=== PATIENT | female | born 1950 | race African-American/Black ===

== ENCOUNTER → 2016-11-26 | Outpatient (CLI) | payer BC ==
[2015-06-25 20:11] VITALS: BP 109/51
--- NOTE | 2016-11-26 15:55 | RAD ---
DATE: 11/26/2016 EXAM: DIGITAL SCREEN BILAT W/CAD HISTORY: Screening study. COMPARISON: None. This study was interpreted with the benefit of Computerized Aided Detection (CAD). The breast parenchyma shows scattered fibroglandular densities. Breast parenchyma level B. FINDINGS: Two digital MLO and CC mammograms of both breasts were obtained. This is patient's baseline mammogram. The breast parenchyma is composed of scattered fibroglandular densities which can obscure a lesion on mammography (breast density code B). No spiculated mass is seen. No malignant appearing calcification or area of architectural distortion is noted. Benign-appearing calcifications are seen within both breasts. IMPRESSION: BI-RADS Category 1, negative. There is no mammographic evidence of malignancy. Routine yearly screening mammography is recommended for follow-up. BI-RADS CATEGORY: 1 NEGATIVE RECOMMENDED FOLLOW-UP: 12M 12 MONTH FOLLOW-UP PQRS compliance statement: Patient information was entered into a reminder system with a target due date 11/26/2017 for the next mammogram. Mammography is a sensitive method for finding small breast cancers, but it does not detect them all and is not a substitute for careful clinical examination. A negative mammogram does not negate a clinically suspicious finding and should not result in delay in biopsying a clinically suspicious abnormality. "Our facility is accredited by the [employer] Mammography Program."
== END | disposition home or self-care (01) ==
LOC: MAMMO 12:32
PROVIDERS: ATTEND Family Medicine
DX: Z12.31 Encounter for screening mammogram for malignant neoplasm of breast (principal)
CPT/HCPCS: G0202; 77067

== ENCOUNTER → 2018-03-17 | Outpatient (CLI) | payer BC ==
[2015-06-25 20:11] VITALS: BP 109/51
--- NOTE | 2018-03-21 08:23 | RAD ---
DATE: 03/17/2018 1:00 PM EXAM: MAMMO [place] SCREENING BILATERAL HISTORY: routine screening evaluation COMPARISON: 11/26/2016 Bilateral CC and MLO views of the breasts were performed. Bilateral breast tomosynthesis was performed in CC and MLO projections. This study was interpreted with the benefit of Computerized Aided Detection (CAD ). Breast Density: The breast parenchyma is primarily fatty replaced. Breast parenchyma level density A. FINDINGS: Benign calcifications are present. No suspicious masses, microcalcifications or architectural distortion is present to suggest malignancy in either breast. The visualized axillae are unremarkable. IMPRESSION: No mammographic evidence of malignancy. BI-RADS CATEGORY: 2 BENIGN FINDING(S) RECOMMENDED FOLLOW-UP: 12M 12 MONTH FOLLOW-UP Annual screening mammography is recommended, unless clinically indicated sooner based on symptoms or change in physical exam. PQRS compliance statement: Patient information was entered into a reminder system with a target due date 03/18/2018 for the next mammogram. Mammography is a sensitive method for finding small breast cancers, but it does not detect them all and is not a substitute for careful clinical examination. A negative mammogram does not negate a clinically suspicious finding and should not result in delay in biopsying a clinically suspicious abnormality. "Our facility is accredited by the [employer] Mammography Program." LAUREND
== END | disposition home or self-care (01) ==
LOC: MAMMO 10:40
PROVIDERS: ATTEND Family Medicine
DX: Z12.31 Encounter for screening mammogram for malignant neoplasm of breast (principal)
CPT/HCPCS: 77063; 77067

== ENCOUNTER 2018-12-12 16:45 | Inpatient (IN) | payer BC ==
[~2018-12-12] VITALS: Ht 152.4 cm; Wt 131.5 kg
--- NOTE | 2018-12-12 19:29 | PHYS DOC ---
Past Medical History Past Medical History: Arthritis, High Cholesterol, Hypertension (CARSON YAO APRN) Past Surgical History: Cholecystectomy, Hysterectomy, Tubal ligation, Other Additional Past Surgical Histo: HERNIA (CARSON YAO APRN) Alcohol Use: None Drug Use: None (CARSON YAO APRN) Adult General Chief Complaint Chief Complaint: FOOT INJURY PAIN HPI HPI Patient is a 68 year old female who presents with eczema to her bilateral lower extremities. Patient states he has A frequency of lotions or medications he uses on eczema. Patient states it has gotten worse began to swell and weep and turned red in color. Patient states that not hurt. Patient denies fevers. Patient states over the last couple months size of the area on the right lower leg has grew dramatically. Patient been using Eucerin cream, vaseline, and triamcinolone cream. (CARSON YAO SPORTS SPECIALIST) Review of Systems Review of Systems Constitutional: Denies fever or chills [] Integument: Right and left lower leg wounds. Denies rash or skin lesions [] Neurologic: Denies headache, focal weakness or sensory changes [] All other systems were reviewed and found to be within normal limits, except as documented in this note. (CARSON YAO APRN) Allergies Allergies Allergies Coded Allergies Type Severity Reaction Last Updated Verified acetaminophen Allergy Intermediate 06/25/15 Yes codeine Allergy Intermediate 06/25/15 Yes egg Allergy Intermediate 06/25/15 Yes venom-honey bee Allergy Intermediate 06/25/15 Yes (QUINN CARDENAS DO) Physical Exam Physical Exam Constitutional: Well developed, well nourished, no acute distress, non-toxic appearance. [] Skin: Right and left lower leg wounds. (See note) Warm, dry, no erythema, no rash. [] Back: No tenderness, no CVA tenderness. [] Extremities: No tenderness, no cyanosis, no clubbing, ROM intact, Right lower leg 2+ and left lower leg 1+ edema. [] Neurologic: Alert and oriented X 3, normal motor function, normal sensory function, no focal deficits noted. [] Psychologic: Affect normal, judgement normal, mood normal. [] (CARSON YAO APRN) Current Patient Data Vital Signs Vital Signs Date Time Temp Pulse Resp B/P (MAP) Pulse Ox O2 Delivery O2 Flow Rate FiO2 12/12/18 20:10 90 170/74 (106) 97 Room Air 12/12/18 18:29 98.1 16 98.1 (QUINN CARDENAS DO) Lab Values Laboratory Tests Test 12/12/18 20:55 White Blood Count 9.8 x10^3/uL (4.0-11.0) Red Blood Count 5.38 x10^6/uL (3.50-5.40) Hemoglobin 12.0 g/dL (12.0-15.5) Hematocrit 37.8 % (36.0-47.0) Mean Corpuscular Volume 70 fL (79-100) L Mean Corpuscular Hemoglobin 22 pg (25-35) L Mean Corpuscular Hemoglobin Concent 32 g/dL (31-37) Red Cell Distribution Width 15.5 % (11.5-14.5) H Platelet Count 283 x10^3/uL (140-400) Neutrophils (%) (Auto) 62 % (31-73) Lymphocytes (%) (Auto) 29 % (24-48) Monocytes (%) (Auto) 8 % (0-9) Eosinophils (%) (Auto) 1 % (0-3) Basophils (%) (Auto) 1 % (0-3) Neutrophils # (Auto) 6.0 x10^3/uL (1.8-7.7) Lymphocytes # (Auto) 2.8 x10^3/uL (1.0-4.8) Monocytes # (Auto) 0.8 x10^3/uL (0.0-1.1) Eosinophils # (Auto) 0.1 x10^3/uL (0.0-0.7) Basophils # (Auto) 0.1 x10^3/uL (0.0-0.2) Platelet Estimate Adequate (ADEQUATE) Hypochromasia Mod Microcytosis Mod Sodium Level 142 mmol/L (136-145) Potassium Level 3.4 mmol/L (3.5-5.1) L Chloride Level 102 mmol/L (98-107) Carbon Dioxide Level 32 mmol/L (21-32) Anion Gap 8 (6-14) Blood Urea Nitrogen 19 mg/dL (7-20) Creatinine 0.7 mg/dL (0.6-1.0) Estimated GFR (Cockcroft-Gault) 101.0 BUN/Creatinine Ratio 27 (6-20) H Glucose Level 102 mg/dL (70-99) H Lactic Acid Level 1.5 mmol/L (0.4-2.0) Calcium Level 9.8 mg/dL (8.5-10.1) Total Bilirubin 0.3 mg/dL (0.2-1.0) Aspartate Amino Transferase (AST) 12 U/L (15-37) L Alanine Aminotransferase (ALT) 17 U/L (14-59) Alkaline Phosphatase 101 U/L (46-116) Total Protein 7.8 g/dL (6.4-8.2) Albumin 3.6 g/dL (3.4-5.0) Albumin/Globulin Ratio 0.9 (1.0-1.7) L Laboratory Tests 12/12/18 20:55 Laboratory Tests 12/12/18 20:55 (CARSON YAO APRN) EKG EKG [] (CARSON YAO APRN) Radiology/Procedures Radiology/Procedures [] (CARSON YAO APRN) Radiology/Procedures Bilateral ankle 3V & Right Tib/Fib 2V: (Preliminary interpretation by ED physician): No acute fracture/dislocation (QUINN CARDENAS DO) Course & Med Decision Making Course & Med Decision Making Patient is a 68 year old female who presents with eczema to her bilateral lower extremities. Patient states he has A frequency of lotions or medications he uses on eczema. Patient states it has gotten worse began to swell and weep and turned red in color. Patient states that not hurt. Patient denies fevers. Patient states over the last couple months size of the area on the right lower leg has grew dramatically. Patient been using Eucerin cream, vaseline, and triamcinolone cream. Has a large weeping reddened area the size of a softball to her right lower leg. Patient also has a vague thigh weeping reddened area to the left lower medial leg and another dollar coin-sized reddened non-weeping area to the lateral left lower leg. There is plus edema to the right lower leg and 1+ to the left lower leg. Pedal pulses palpable. Cap refill less than 3 seconds. Skin is pink warm and dry. Patient states he is not diabetic and she denies any numbness or tingling, or coolness to that extremity. Alert and oriented. Ambulatory with a steady gait I have spoken to Dr Miles about this patient and they are admitted for cellulitis. (CAROSN YAO APRN) Dragon Disclaimer Dragon Disclaimer This electronic medical record was generated, in whole or in part, using a voice recognition dictation system. (CARSON YAO APRN) Departure Departure Impression: Primary Impression: Cellulitis Disposition: ADMITTED INPATIENT Admitting Physician: Ivone Ndiaye (QUINN CARDENAS DO) Condition: STABLE Referrals: Wihtley CHANEL MD (PCP) Attending Signature Attending Signature I have reviewed the PA/LICENSING OFFICER's note and plan of care. I was available for consultation as needed during the patient's visit in the emergency department. I agree with the clinical impression, plan, and disposition. (QUINN CADRENAS DO) Problem Qualifiers Primary Impression: Cellulitis Site of cellulitis: extremity Site of cellulitis of extremity: lower extremity Laterality: unspecified laterality Qualified Codes: L03.119 - Cellulitis of unspecified part of limb CARSON YAO APRN Dec 12, 2018 19:29 QUINN CARDENAS DO Dec 13, 2018 04:26
[2018-12-12 21:05] LABS: BASO # 0.1 x10^3/uL (0.0-0.2); BASO % 1 % (0-3); EOS # 0.1 x10^3/uL (0.0-0.7); EOS % 1 % (0-3); HEMATOCRIT 37.8 % (36.0-47.0); LYMPH # 2.8 x10^3/uL (1.0-4.8); LYMPH % 29 % (24-48); MEAN CORPUSCULAR HEMOGLOBIN 22 pg (25-35); MEAN CORPUSCULAR HGB CONC 32 g/dL (31-37); MEAN CORPUSCULAR VOLUME 70 fL (79-100); MONO # 0.8 x10^3/uL (0.0-1.1); MONO % 8 % (0-9); NEUT % 62 % (31-73); PLATELET COUNT 283 x10^3/uL (140-400); RED BLOOD COUNT 5.38 x10^6/uL (3.50-5.40); RED CELL DISTRIBUTION WIDTH 15.5 % (11.5-14.5); WHITE BLOOD COUNT 9.8 x10^3/uL (4.0-11.0)
[2018-12-12 21:16] LABS: CALCIUM 9.8 mg/dL (8.5-10.1); CREATININE 0.7 mg/dL (0.6-1.0); POTASSIUM 3.4 mmol/L (3.5-5.1)
[2018-12-12 21:24] LABS: PLT ESTIMATE ADEQUATE (ADEQUATE)
[2018-12-12 21:25] LABS: HYPOCHROMIA MOD; MICROCYTOSIS MOD
[2018-12-12 21:31] LABS: ALBUMIN 3.6 g/dL (3.4-5.0); ALBUMIN/GLOBULIN RATIO 0.9 (1.0-1.7); TOTAL BILIRUBIN 0.3 mg/dL (0.2-1.0); TOTAL PROTEIN 7.8 g/dL (6.4-8.2)
[2018-12-12] MEDS ORDERED: fentaNYL PF VIAL 100 MCG/2 ML VIAL IV PRN (22:00)
[2018-12-12] MEDS ORDERED: ONDANSETRON PF 4 MG/2 ML VIAL. IV PRN (22:00)
[2018-12-12] MEDS ORDERED: VANCOMYCIN 2 GM in IV NORMAL SALINE 500ML BAG 500 ML IV ONE (22:30)
[2018-12-12 23:00] VITALS: BP 164/77
[2018-12-13 03:00] VITALS: BP 168/70
[2018-12-13] MEDS: VANCOMYCIN PER PHARMACY MC PRN ×2 (03:01→14:48)
--- NOTE | 2018-12-13 03:01 | NUR ---
Pharmacy Vancomycin Dosing Note S:Consulted to monitor and dose vancomycin started 12/12/18. O:HELENA COLORADO is a 68 year old F with Cellulitis . Height: 5 feet, 0 inches Weight: 136.622891 kg [place] Body Weight: 45.50 Adjusted Body Weight: 81.70 Dosing Weight: Actual Other Antibiotics: LABS: Last BUN: 19 Last Creatinine: 0.7 Creatinine Clearance: 70 mL/min Last WBC: 9.8 Last Procalcitonin: Tmax (past 24 hours): Microbiology: I/O: Drug Levels: Last level: on at Last dose given 12/12/18 at 2300 Vancomycin Dosing: Loading Dose: 2000 mg x1 Dosing Weight: Actual Target Trough: 10-20 A: Based on: WT AND CRCL P: 1. Begin Vancomycin 2000 mg IV q12h 2. Follow up Trough level on 12/14/18 at 0301 3. Pharmacy will continue to monitor, follow and adjust therapy as needed. ALBERT MITCHELL RPH, 12/13/18 0301 Signed: 12/13/18 at 0302 by ALBERT MITCHELL RPH PHA
[2018-12-13 07:00] VITALS: BP 167/69
--- NOTE | 2018-12-13 08:16 | RAD ---
ANKLE RIGHT 3V, TIBIA FIBULA RIGHT History: Bilateral lower extremity wounds. Technique: 2 views right tib-fib and 3 views right ankle. Comparison: None. Findings: Advanced tricompartment right knee DJD. Normal alignment. No fracture. Symmetric ankle mortise. Lower extremity soft tissue swelling. No radiographic evidence of osteomyelitis. Small dorsal and plantar calcaneal spurs. Vascular calcifications. Impression: 1. No acute osseous abnormality. 2. Advanced tricompartment right knee DJD. Electronically signed by: Anam Adams DO (12/13/2018 8:13 AM) [email or web address]
[2018-12-13] MEDS ORDERED: HYDR-2145 PO (08:18)
[2018-12-13] MEDS ORDERED: CALC-77 PO (08:18)
[2018-12-13] MEDS ORDERED: LOVA40TA2 PO (08:18)
--- NOTE | 2018-12-13 08:18 | RAD ---
ANKLE LEFT 3V History: Bilateral lower extremity wounds. Technique: 3 views left ankle. Comparison: None. Findings: Normal alignment. No fracture. No radiographic evidence of osteomyelitis. Lower extremity soft tissue swelling. Plantar calcaneal spur. Vascular calcifications. Impression: 1. No acute osseous abnormality. Electronically signed by: Anam Adams DO (12/13/2018 8:16 AM) [email or web address]
[2018-12-13] MEDS ORDERED: ACETAMINOPHEN 500 MG TABLET PO PRN (08:45)
--- NOTE | 2018-12-13 08:49 | PDOC ---
PROGRESS NOTES Subjective Subjective Patient reports her legs look better to her today than they did at admission. Objective Objective Vital Signs Date Time Temp Pulse Resp B/P (MAP) Pulse Ox O2 Delivery O2 Flow Rate FiO2 12/13/18 07:50 Room Air 12/13/18 07:00 98.7 69 20 167/69 (101) 92 98.7 Intake and Output 12/13/18 06:59 Intake Total 300 ml Balance 300 ml Intake Oral 300 ml # Voids 1 Physical Exam Abdomen: Normal bowel sounds, Soft, No tenderness Heart: Regular rate Extremities: Other (scant edema bilateral LE's) General: Alert, Oriented X3, No acute distress Lungs: Clear to auscultation Skin: Other (bilateral lower legs with areas of eczema and surrounding erythema. Skin peeling but intact) Plan Plan of Care 1. Cellulitis bilateral LE's - improved from admission. Continue IV abx and elev ation. 2. eczema - treat with TAC BID. Patient aware of advice to avoid scratching or rubbing. 3. HTN - BP elevated, continue HCTZ and add Losartan. Comment Review of Relevant I have reviewed the following items brenden (where applicable) has been applied. Labs Laboratory Tests Test 12/12/18 20:55 White Blood Count 9.8 x10^3/uL (4.0-11.0) Red Blood Count 5.38 x10^6/uL (3.50-5.40) Hemoglobin 12.0 g/dL (12.0-15.5) Hematocrit 37.8 % (36.0-47.0) Mean Corpuscular Volume 70 fL (79-100) Mean Corpuscular Hemoglobin 22 pg (25-35) Mean Corpuscular Hemoglobin Concent 32 g/dL (31-37) Red Cell Distribution Width 15.5 % (11.5-14.5) Platelet Count 283 x10^3/uL (140-400) Neutrophils (%) (Auto) 62 % (31-73) Lymphocytes (%) (Auto) 29 % (24-48) Monocytes (%) (Auto) 8 % (0-9) Eosinophils (%) (Auto) 1 % (0-3) Basophils (%) (Auto) 1 % (0-3) Neutrophils # (Auto) 6.0 x10^3/uL (1.8-7.7) Lymphocytes # (Auto) 2.8 x10^3/uL (1.0-4.8) Monocytes # (Auto) 0.8 x10^3/uL (0.0-1.1) Eosinophils # (Auto) 0.1 x10^3/uL (0.0-0.7) Basophils # (Auto) 0.1 x10^3/uL (0.0-0.2) Platelet Estimate Adequate (ADEQUATE) Hypochromasia Mod Microcytosis Mod Sodium Level 142 mmol/L (136-145) Potassium Level 3.4 mmol/L (3.5-5.1) Chloride Level 102 mmol/L (98-107) Carbon Dioxide Level 32 mmol/L (21-32) Anion Gap 8 (6-14) Blood Urea Nitrogen 19 mg/dL (7-20) Creatinine 0.7 mg/dL (0.6-1.0) Estimated GFR (Cockcroft-Gault) 101.0 BUN/Creatinine Ratio 27 (6-20) Glucose Level 102 mg/dL (70-99) Lactic Acid Level 1.5 mmol/L (0.4-2.0) Calcium Level 9.8 mg/dL (8.5-10.1) Total Bilirubin 0.3 mg/dL (0.2-1.0) Aspartate Amino Transf (AST/SGOT) 12 U/L (15-37) Alanine Aminotransferase (ALT/SGPT) 17 U/L (14-59) Alkaline Phosphatase 101 U/L (46-116) Total Protein 7.8 g/dL (6.4-8.2) Albumin 3.6 g/dL (3.4-5.0) Albumin/Globulin Ratio 0.9 (1.0-1.7) Laboratory Tests Test 12/12/18 20:55 White Blood Count 9.8 x10^3/uL (4.0-11.0) Red Blood Count 5.38 x10^6/uL (3.50-5.40) Hemoglobin 12.0 g/dL (12.0-15.5) Hematocrit 37.8 % (36.0-47.0) Mean Corpuscular Volume 70 fL (79-100) Mean Corpuscular Hemoglobin 22 pg (25-35) Mean Corpuscular Hemoglobin Concent 32 g/dL (31-37) Red Cell Distribution Width 15.5 % (11.5-14.5) Platelet Count 283 x10^3/uL (140-400) Neutrophils (%) (Auto) 62 % (31-73) Lymphocytes (%) (Auto) 29 % (24-48) Monocytes (%) (Auto) 8 % (0-9) Eosinophils (%) (Auto) 1 % (0-3) Basophils (%) (Auto) 1 % (0-3) Neutrophils # (Auto) 6.0 x10^3/uL (1.8-7.7) Lymphocytes # (Auto) 2.8 x10^3/uL (1.0-4.8) Monocytes # (Auto) 0.8 x10^3/uL (0.0-1.1) Eosinophils # (Auto) 0.1 x10^3/uL (0.0-0.7) Basophils # (Auto) 0.1 x10^3/uL (0.0-0.2) Platelet Estimate Adequate (ADEQUATE) Hypochromasia Mod Microcytosis Mod Sodium Level 142 mmol/L (136-145) Potassium Level 3.4 mmol/L (3.5-5.1) Chloride Level 102 mmol/L (98-107) Carbon Dioxide Level 32 mmol/L (21-32) Anion Gap 8 (6-14) Blood Urea Nitrogen 19 mg/dL (7-20) Creatinine 0.7 mg/dL (0.6-1.0) Estimated GFR (Cockcroft-Gault) 101.0 BUN/Creatinine Ratio 27 (6-20) Glucose Level 102 mg/dL (70-99) Lactic Acid Level 1.5 mmol/L (0.4-2.0) Calcium Level 9.8 mg/dL (8.5-10.1) Total Bilirubin 0.3 mg/dL (0.2-1.0) Aspartate Amino Transf (AST/SGOT) 12 U/L (15-37) Alanine Aminotransferase (ALT/SGPT) 17 U/L (14-59) Alkaline Phosphatase 101 U/L (46-116) Total Protein 7.8 g/dL (6.4-8.2) Albumin 3.6 g/dL (3.4-5.0) Albumin/Globulin Ratio 0.9 (1.0-1.7) Medications Current Medications Ondansetron HCl (Zofran) 4 mg PRN Q8HRS PRN IV NAUSEA/VOMITING 1ST CHOICE; Start 12/12/18 at 22:00; Stop 12/13/18 at 21:59 Fentanyl Citrate (Fentanyl 2ml Vial) 50 mcg PRN Q1HR PRN IV SEVERE PAIN 7-10; Start 12/12/18 at 22:00; Stop 12/13/18 at 21:59 Vancomycin HCl (Vanco Per Pharmacy) 1 each PRN DAILY PRN MC SEE COMMENTS Last administered on 12/13/18at 03:01; Start 12/12/18 at 22:15 Vancomycin HCl 2 gm/Sodium Chloride 500 ml @ 250 mls/hr 1X ONCE IV Last administered on 12/12/18at 22:37; Start 12/12/18 at 22:30; Stop 12/13/18 at 00:29; Status DC Vancomycin HCl 2 gm/Sodium Chloride 500 ml @ 250 mls/hr Q12H IV ; Start 9 at 11:00 Vancomycin HCl (Vancomycin Trough Level) 1 each 1X ONCE MC ; Start 12/14/18 at 10:30; Stop 12/14/18 at 10:31 Hydrochlorothiazide (Hydrodiuril) 25 mg DAILY PO ; Start 12/13/18 at 09:00; Status UNV Non-Formulary Medication (Calcium Carb & Cit/Vitamin D3 (Calcium + D3 Er Tablet)) 1 each DAILY PO ; Start 12/13/18 at 09:00; Status UNV Non-Formulary Medication (Lovastatin ) 40 mg HS PO ; Start 12/13/18 at 21:00; Status UNV Active Scripts Active Reported Calcium + D3 Er Tablet (Calcium Carb & Cit/Vitamin D3) 1 Each Tablet.er 1 Each PO DAILY Lovastatin 40 Mg Tablet 40 Mg PO HS Hydrochlorothiazide Tablet (Hydrochlorothiazide) 25 Mg Tablet 25 Mg PO DAILY Vitals/I & O Vital Sign - Last 24 Hours 12/12/18 12/12/18 12/12/18 12/12/18 18:29 19:50 20:10 21:16 Temp 98.1 98.1 Pulse 90 96 90 94 Resp 16 B/P (MAP) 176/82 (113) 181/81 (114) 170/74 (106) 182/73 (109) Pulse Ox 98 98 97 97 O2 Delivery Room Air Room Air Room Air Room Air 12/12/18 12/12/18 12/12/18 12/13/18 22:16 23:00 23:16 03:00 Temp 98.3 98.5 98.3 98.5 Pulse 82 92 88 79 Resp 20 20 B/P (MAP) 163/76 (105) 164/77 (106) 196/82 (120) 168/70 (102) Pulse Ox 97 96 97 94 O2 Delivery Room Air Room Air Room Air Room Air 12/13/18 12/13/18 12/13/18 04:30 07:00 07:50 Temp 98.7 98.7 Pulse 69 Resp 20 B/P (MAP) 167/69 (101) Pulse Ox 92 O2 Delivery Room Air Room Air Room Air Intake and Output 12/12/18 12/12/18 12/13/18 14:59 22:59 06:59 Intake Total 300 ml Balance 300 ml CALISTA AYALA MD Dec 13, 2018 08:49
--- NOTE | 2018-12-13 09:10 | HP ---
ADMIT DATE: 12/12/2018 CHIEF COMPLAINT: Redness and swelling in bilateral legs. HISTORY OF PRESENT ILLNESS: The patient is a 68-year-old female with a history of eczema, who presented to the emergency room with the above complaint. She reported a several-day history of increasing swelling in her legs. Her eczema had not been well controlled and she had been scratching at it more than was usual for her. She had tried moisturizers and some [id number] steroid cream, but her symptoms continue to worsen and she grew concerned when she had increased swelling in her legs. When seen in the emergency room, she was found to have cellulitis of her legs. Treatment was started and she was admitted for further care. PAST MEDICAL HISTORY: Eczema, hypertension, hyperlipidemia, osteoarthritis. PAST SURGICAL HISTORY: Cholecystectomy, hysterectomy, ventral hernia repair. ALLERGIES: THE PATIENT IS ALLERGIC TO CODEINE, EGGS AND BEE VENOM. HOME MEDICATIONS: Hydrochlorothiazide 25 mg daily, lovastatin 40 mg daily, calcium supplement daily. FAMILY HISTORY: Noncontributory. SOCIAL HISTORY: The patient is single. 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 She does not smoke cigarettes or drink alcohol to excess. REVIEW OF SYSTEMS: The patient states she has been feeling well. She denies fever or chills. She denies cough or shortness of breath. She denies chest pain or palpitations. She denies abdominal pain, nausea or vomiting. She has been taking her medication daily, but admits that she is overdue to see Dr. Ahmadi for a blood pressure check. PHYSICAL EXAMINATION: GENERAL: The patient is alert and oriented x 3, sitting up comfortably in bed, in no acute distress. HEENT: PERRL, EOMI, sclerae clear. Oropharynx: Mucous membranes moist. NECK: Supple, without lymphadenopathy. CHEST: Clear to auscultation. CARDIOVASCULAR: Regular rhythm without murmur. ABDOMEN: Soft, nontender, normoactive bowel sounds are present. EXTREMITIES: Bilateral lower extremities show mild edema. SKIN: Shows areas of eczema with surrounding erythema bilateral lower legs, right worse than left. The skin is peeling, but intact. ASSESSMENT AND PLAN: 1. Cellulitis, bilateral lower extremities. The patient reports this has improved overnight. We will continue IV antibiotics and elevation. 2. Eczema, treat with triamcinolone b.i.d. The patient is aware of the advice to avoid scratching or rubbing the skin. 3. Hypertension. The patient's blood pressure is elevated. We will continue her usual hydrochlorothiazide and add low-dose losartan. CALISTA AYALA MD DR: DELPHINE/susy JOB#: [id number] / [id number] GAGAN
[2018-12-13] MEDS: CALCIUM CARB/VIT D3 500/200 TABLET. PO SCH (09:19)
[2018-12-13] MEDS: hydroCHLOROthiazide 25 MG TABLET PO SCH (09:19)
[2018-12-13] MEDS: LOSARTAN POTASSIUM 25 MG TABLET. PO SCH (09:19)
[2018-12-13 10:40] VITALS: BP 186/79
[2018-12-13] MEDS: VANCOMYCIN 2 GM in IV NORMAL SALINE 500ML BAG 500 ML IV SCH ×2 (10:46→22:01)
[2018-12-13] MEDS: TRIAMCINOLONE ACETONIDE 0.1% TOPICAL CREAM 15GM TUBE. TP SCH ×2 (10:47→21:09)
[2018-12-13 15:00] VITALS: BP 149/70
--- NOTE | 2018-12-13 16:00 | NUR ---
IV infiltrated during last 1/4 of Vancomycin infusion. Vanco stopped, warm pack applied.
[2018-12-13 19:00] VITALS: BP 174/81
[2018-12-13] MEDS ORDERED: ATORVASTATIN CALCIUM 10 MG TABLET. PO SCH (21:00)
[2018-12-13] MEDS: LACTOBACILLUS RHAMNOSUS GG 1 CAPSULE. PO SCH (21:09)
[2018-12-13 23:00] VITALS: BP 153/75
[2018-12-14 02:37] VITALS: BP 151/62
[2018-12-14 05:31] LABS: CALCIUM 9.2 mg/dL (8.5-10.1); CREATININE 0.7 mg/dL (0.6-1.0); POTASSIUM 3.5 mmol/L (3.5-5.1)
[2018-12-14 07:00] VITALS: BP 172/68
[2018-12-14] MEDS: LACTOBACILLUS RHAMNOSUS GG 1 CAPSULE. PO SCH (07:45)
[2018-12-14] MEDS: CALCIUM CARB/VIT D3 500/200 TABLET. PO SCH (07:45)
[2018-12-14] MEDS: TRIAMCINOLONE ACETONIDE 0.1% TOPICAL CREAM 15GM TUBE. TP SCH (07:45)
[2018-12-14] MEDS: hydroCHLOROthiazide 25 MG TABLET PO SCH (07:46)
[2018-12-14] MEDS: LOSARTAN POTASSIUM 25 MG TABLET. PO SCH (07:46)
--- NOTE | 2018-12-14 08:27 | PDOC ---
PROGRESS NOTES Subjective Subjective Patient feels legs are looking better, ready to go home today. Objective Objective Vital Signs Date Time Temp Pulse Resp B/P (MAP) Pulse Ox O2 Delivery O2 Flow Rate FiO2 12/14/18 07:46 69 172/68 12/14/18 07:00 98.1 18 96 Room Air 2.0 98.1 Intake and Output 12/14/18 06:59 Intake Total 2550 ml Balance 2550 ml Intake Oral 1650 ml IV Total 900 ml # Voids 7 Physical Exam Abdomen: Normal bowel sounds, Soft, No tenderness Heart: Regular rate Extremities: Other (scant edema and erythema bilateral lower legs, skin less dry) General: Alert, Oriented X3, No acute distress Lungs: Clear to auscultation Assessment Assessment Problems Medical Problems: (1) Cellulitis of both lower extremities Status: Acute (2) Eczema Status: Acute (3) Hypertension Status: Chronic Plan Plan of Care 1. Cellulitis bilateral LE's - improved, home today on Keflex. 2. eczema - improving, importance of skin care with steroid cream and moisturizer discussed. 3. HTN - BP still elevated with HCTZ and Losartan 25 mg, will increase to 50mg. Close follow up with Dr Ahmadi advised. Comment Review of Relevant I have reviewed the following items brenden (where applicable) has been applied. Labs Laboratory Tests Test 12/12/18 20:55 12/14/18 04:25 White Blood Count 9.8 x10^3/uL (4.0-11.0) Red Blood Count 5.38 x10^6/uL (3.50-5.40) Hemoglobin 12.0 g/dL (12.0-15.5) Hematocrit 37.8 % (36.0-47.0) Mean Corpuscular Volume 70 fL (79-100) Mean Corpuscular Hemoglobin 22 pg (25-35) Mean Corpuscular Hemoglobin Concent 32 g/dL (31-37) Red Cell Distribution Width 15.5 % (11.5-14.5) Platelet Count 283 x10^3/uL (140-400) Neutrophils (%) (Auto) 62 % (31-73) Lymphocytes (%) (Auto) 29 % (24-48) Monocytes (%) (Auto) 8 % (0-9) Eosinophils (%) (Auto) 1 % (0-3) Basophils (%) (Auto) 1 % (0-3) Neutrophils # (Auto) 6.0 x10^3/uL (1.8-7.7) Lymphocytes # (Auto) 2.8 x10^3/uL (1.0-4.8) Monocytes # (Auto) 0.8 x10^3/uL (0.0-1.1) Eosinophils # (Auto) 0.1 x10^3/uL (0.0-0.7) Basophils # (Auto) 0.1 x10^3/uL (0.0-0.2) Platelet Estimate Adequate (ADEQUATE) Hypochromasia Mod Microcytosis Mod Sodium Level 142 mmol/L (136-145) 142 mmol/L (136-145) Potassium Level 3.4 mmol/L (3.5-5.1) 3.5 mmol/L (3.5-5.1) Chloride Level 102 mmol/L (98-107) 105 mmol/L (98-107) Carbon Dioxide Level 32 mmol/L (21-32) 30 mmol/L (21-32) Anion Gap 8 (6-14) 7 (6-14) Blood Urea Nitrogen 19 mg/dL (7-20) 17 mg/dL (7-20) Creatinine 0.7 mg/dL (0.6-1.0) 0.7 mg/dL (0.6-1.0) Estimated GFR (Cockcroft-Gault) 101.0 101.0 BUN/Creatinine Ratio 27 (6-20) Glucose Level 102 mg/dL (70-99) 101 mg/dL (70-99) Lactic Acid Level 1.5 mmol/L (0.4-2.0) Calcium Level 9.8 mg/dL (8.5-10.1) 9.2 mg/dL (8.5-10.1) Total Bilirubin 0.3 mg/dL (0.2-1.0) Aspartate Amino Transf (AST/SGOT) 12 U/L (15-37) Alanine Aminotransferase (ALT/SGPT) 17 U/L (14-59) Alkaline Phosphatase 101 U/L (46-116) Total Protein 7.8 g/dL (6.4-8.2) Albumin 3.6 g/dL (3.4-5.0) Albumin/Globulin Ratio 0.9 (1.0-1.7) Laboratory Tests Test 12/14/18 04:25 Sodium Level 142 mmol/L (136-145) Potassium Level 3.5 mmol/L (3.5-5.1) Chloride Level 105 mmol/L (98-107) Carbon Dioxide Level 30 mmol/L (21-32) Anion Gap 7 (6-14) Blood Urea Nitrogen 17 mg/dL (7-20) Creatinine 0.7 mg/dL (0.6-1.0) Estimated GFR (Cockcroft-Gault) 101.0 Glucose Level 101 mg/dL (70-99) Calcium Level 9.2 mg/dL (8.5-10.1) Microbiology 12/12/18 Blood Culture - Preliminary, Resulted NO GROWTH AFTER 1 DAY Medications Current Medications Ondansetron HCl (Zofran) 4 mg PRN Q8HRS PRN IV NAUSEA/VOMITING 1ST CHOICE; Start 12/12/18 at 22:00; Stop 12/13/18 at 21:59; Status DC Fentanyl Citrate (Fentanyl 2ml Vial) 50 mcg PRN Q1HR PRN IV SEVERE PAIN 7-10; Start 12/12/18 at 22:00; Stop 12/13/18 at 21:59; Status DC Vancomycin HCl (Vanco Per Pharmacy) 1 each PRN DAILY PRN MC SEE COMMENTS Last administered on 12/13/18at 14:48; Start 12/12/18 at 22:15 Vancomycin HCl 2 gm/Sodium Chloride 500 ml @ 250 mls/hr 1X ONCE IV Last administered on 12/12/18at 22:37; Start 12/12/18 at 22:30; Stop 12/13/18 at 00:29; Status DC Vancomycin HCl 2 gm/Sodium Chloride 500 ml @ 250 mls/hr Q12H IV Last administered on 12/13/18at 22:01; Start 12/13/18 at 11:00 Vancomycin HCl (Vancomycin Trough Level) 1 each 1X ONCE MC ; Start 12/14/18 at 10:30; Stop 12/14/18 at 10:31 Hydrochlorothiazide (Hydrodiuril) 25 mg DAILY PO Last administered on 12/14/18at 07:46; Start 12/13/18 at 09:00 Calcium/Vitamin D (Oscal D 500mg/ 200uts) 1 tab DAILY PO Last administered on 12/14/18at 07:46; Start 12/13/18 at 09:00 Atorvastatin Calcium (Lipitor) 10 mg QHS PO Last administered on 12/13/18at 2 1:09; Start 12/13/18 at 21:00 Acetaminophen (Tylenol) 1,000 mg PRN Q6HRS PRN PO MILD PAIN 1-3; Start 12/13/18 at 08:45 Losartan Potassium (Cozaar) 25 mg DAILY PO Last administered on 12/14/18at 07:46; Start 12/13/18 at 09:00 Triamcinolone Acetonide (Kenalog 0.1%) 1 edgar BID TP Last administered on 12/14/18at 07:46; Start 12/13/18 at 09:00 Lactobacillus Rhamnosus (Culturelle) 1 cap BID PO Last administered on 12/14/18at 07:46; Start 12/13/18 at 21:00 Active Scripts Active Reported Calcium + D3 Er Tablet (Calcium Carb & Cit/Vitamin D3) 1 Each Tablet.er 1 Each PO DAILY Lovastatin 40 Mg Tablet 40 Mg PO HS Hydrochlorothiazide Tablet (Hydrochlorothiazide) 25 Mg Tablet 25 Mg PO DAILY Vitals/I & O Vital Sign - Last 24 Hours 12/13/18 12/13/18 12/13/18 12/13/18 09:19 10:40 15:00 19:00 Temp 98.2 98.2 98.6 98.2 98.2 98.6 Pulse 69 90 79 90 Resp 18 18 17 B/P (MAP) 167/69 186/79 (114) 149/70 (96) 174/81 (112) Pulse Ox 96 98 96 O2 Delivery Room Air Room Air Room Air 12/13/18 12/13/18 12/14/18 12/14/18 19:30 23:00 02:37 07:00 Temp 98.2 98.2 98.1 98.2 98.2 98.1 Pulse 80 75 74 Resp 16 17 18 B/P (MAP) 153/75 (101) 151/62 (91) 172/68 (102) Pulse Ox 94 96 96 O2 Delivery Room Air Room Air Room Air Room Air O2 Flow Rate 2.0 12/14/18 07:46 Pulse 69 B/P (MAP) 172/68 Intake and Output 12/13/18 12/13/18 12/14/18 14:59 22:59 06:59 Intake Total 1000 ml 550 ml 1000 ml Balance 1000 ml 550 ml 1000 ml CALISTA AYALA MD Dec 14, 2018 08:27
[2018-12-14] MEDS ORDERED: TRIA15CR3 TP (08:31)
[2018-12-14] MEDS ORDERED: LOSA-73 PO (08:31)
[2018-12-14] MEDS ORDERED: CEPH500C PO (08:31)
--- NOTE | 2018-12-14 08:46 | DS ---
DATE OF DISCHARGE: 12/14/2018 CHIEF COMPLAINT: Redness and swelling in bilateral legs. HISTORY OF PRESENT ILLNESS: The patient is a 68-year-old female with a history of eczema, who presented to the Emergency Room with the above complaint. She reported a several-day history of increasing swelling in her legs. Her eczema had not been well controlled and she had been scratching at it more than was usual for her. She had tried moisturizers and some dhin-fua-ephwawa steroid cream, but her symptoms continued to worsen, and she grew concerned when she had increased swelling in her legs. When seen in the Emergency Room, she was found to have evidence of cellulitis. Treatment was started and she was admitted for further care. HOSPITAL COURSE: The patient was placed on vancomycin for treatment of her cellulitis and had a good improvement in her exam with this. Her eczema was treated with triamcinolone cream twice daily and moisturizer and the importance of ongoing treatment of her eczema was discussed with her. The patient's usual hydrochlorothiazide was continued, but her blood pressure remained quite elevated. Losartan was added to help with blood pressure control. Her blood pressure was somewhat improved yesterday, but still above goal so she will be discharged on a higher dose of losartan at 50 mg daily. She is also to continue her hydrochlorothiazide daily. Closer followup with Dr. Ahmadi is strongly advised and the patient is aware of the importance of this. She feels much better and will be discharged to home today. FINAL DIAGNOSES: 1. Cellulitis, bilateral lower extremities. 2. Eczema. 3. Hypertension. DISCHARGE MEDICATIONS: Keflex 500 mg 2 p.o. b.i.d. x 5 days, then discontinue; losartan 50 mg daily; hydrochlorothiazide 25 mg daily; triamcinolone 0.1% cream b.i.d.; calcium daily; lovastatin 40 mg daily. FOLLOWUP: With Dr. Ahmadi within 2 weeks. CALISTA AYALA MD DR: DELPHINE/susy JOB#: [id number] / [id number] GAGAN
[2018-12-14] MEDS ORDERED: CEPHALEXIN 250 MG CAPSULE. PO SCH (09:00)
[2018-12-14] MEDS ORDERED: LOSARTAN POTASSIUM 50 MG TABLET. PO SCH (09:00)
[2018-12-14 09:12] VITALS: BP 172/68
--- NOTE | 2018-12-14 11:35 | NUR ---
Discharge Note: [place] [address] Discharge instructions and discharge home medications reviewed with Patient and a copy given. All questions have been answered and understanding verbalized. The following instructions and handouts were given: Eczema, cellulitis Discontinued lines and drains: Peripheral IV intact. Patient discharged to Home or Self Care with Family Member via Wheelchair
== END 2018-12-14 11:36 | disposition home or self-care (01) | DRG 603 ==
LOC: ER 16:45 → 5 SOUTH 20:30
PROVIDERS: ADMIT Family Medicine; ATTEND Family Medicine
DX: L03.115 Cellulitis of right lower limb (principal); L30.9 Dermatitis, unspecified; L03.116 Cellulitis of left lower limb; E78.00 Pure hypercholesterolemia, unspecified; M19.90 Unspecified osteoarthritis, unspecified site; E78.5 Hyperlipidemia, unspecified; I10 Essential (primary) hypertension; Z90.710 Acquired absence of both cervix and uterus; Z90.49 Acquired absence of other specified parts of digestive tract; Z98.51 Tubal ligation status; Z88.8 Allergy status to other drugs, medicaments and biological substances; Z91.030 Bee allergy status; Z91.012 Allergy to eggs; Z79.899 Other long term (current) drug therapy
CPT/HCPCS: 36415; 73590; 73610; 80048; 80053; 83605; 85025; 87040; 96365; J3370; J7040; 99285-25; G0378

== ENCOUNTER → 2019-03-27 | Outpatient (CLI) | payer BC ==
[~2019-03-27] MED LIST: CALC-77 PO; CEPH500C PO; HYDR-2145 PO; LOSA-73 PO; LOVA40TA2 PO; TRIA15CR3 TP
--- NOTE | 2019-03-28 16:43 | RAD ---
DATE: 03/27/2019 EXAM: MAMMO [place] SCREENING BILATERAL HISTORY: Routine screening COMPARISON: 11/26/2016 and 03/17/2018 screening mammographic exams This study was interpreted with the benefit of Computerized Aided Detection (CAD). Breast Density: SCATTERED The breast parenchyma shows scattered fibroglandular densities. Breast parenchyma level B. FINDINGS: Small masses are stable. No suspicious calcific lesion, mass or distortion. IMPRESSION: Stable BI-RADS CATEGORY: 1 NEGATIVE RECOMMENDED FOLLOW-UP: 12M 12 MONTH FOLLOW-UP PQRS compliance statement: Patient information was entered into a reminder system with a target due date for the next mammogram. Mammography is a sensitive method for finding small breast cancers, but it does not detect them all and is not a substitute for careful clinical examination. A negative mammogram does not negate a clinically suspicious finding and should not result in delay in biopsying a clinically suspicious abnormality. "Our facility is accredited by the [employer] Mammography Program."
== END | disposition home or self-care (01) ==
LOC: MAMMO 14:35
PROVIDERS: ATTEND Family Medicine
DX: Z12.31 Encounter for screening mammogram for malignant neoplasm of breast (principal); N63.20 Unspecified lump in the left breast, unspecified quadrant; N63.10 Unspecified lump in the right breast, unspecified quadrant
CPT/HCPCS: 77063; 77067

== ENCOUNTER → 2020-04-03 | Outpatient (CLI) | payer BC ==
--- NOTE | 2020-04-03 11:37 | RAD ---
EXAM: Bilateral digital screening mammogram with tomosynthesis. HISTORY: 70-year-old female presents for screening mammography. TECHNIQUE: Full-field digital craniocaudal and mediolateral oblique 2D and 3D tomosynthesis images of both breasts are obtained for evaluation. Computer aided detection was applied. COMPARISON: 03/27/2019 BREAST PARENCHYMAL DENSITY: Level B - Scattered fibroglandular densities. FINDINGS: There is no new suspicious mass, microcalcification or region of architectural distortion. There is stable areas of nodularity and asymmetry within both breasts. There are a few benign calcifi cations. IMPRESSION: BI-RADS Category 2: Benign finding(s). RECOMMENDATION: Annual mammography is recommended. If your mammogram demonstrates that you have dense breast tissue, which could hide abnormalities, and if you have other risk factors for breast cancer that have been identified, you might benefit from s upplemental screening tests that may be suggested by your ordering physician. Dense breast tissue, i n and of itself, is a relatively common condition. This information is not provided to cause undue c oncern, but rather to raise your awareness and to promote discussion with your physician regarding th e presence of other risk factors, in addition to dense breast tissue. A report of your mammography re sults will be sent to you and your physician. You should contact your physician if you have any ques tions or concerns regarding this report. Mammography is a sensitive method for finding small breast cancers, but it does not detect them all a nd is not a substitute for careful clinical examination. A negative mammogram does not negate a clin ically suspicious finding and should not result in delay in biopsying a clinically suspicious abnorma lity. PQRS compliance statement - Patient information was entered into a reminder system with a target due date for the next mammogram. "Our facility is accredited by the [employer] Mammography [employer]." Electronically signed by: Agueda Lang MD (04/03/2020 11:34 AM) [id number]
== END ==
LOC: MAMMO 10:35
PROVIDERS: ATTEND Family Medicine
DX: Z12.31 Encounter for screening mammogram for malignant neoplasm of breast (principal)
CPT/HCPCS: 77063; 77067